=== PATIENT | female | born 1940 | race Caucasian/White ===

== ENCOUNTER → 2016-07-12 | Outpatient (CLI) | payer MEDICARE, OTHER | LOC: GMAL 12:20 | PROVIDERS: ATTEND Family Medicine | DX: D53.9 Nutritional anemia, unspecified (principal) ==

== ENCOUNTER → 2017-01-11 | Outpatient (CLI) | payer MEDICARE, OTHER ==
--- NOTE | 2017-01-11 15:08 | CT ---
EXAM DESCRIPTION: Chest w/Contrast CLINICAL HISTORY: SOLITARY PULMONARY NODULE COMPARISON: Chest x-ray September 10, 2014 TECHNIQUE: Postcontrast CT images of the chest are obtained. This exam was performed according to our departmental dose-optimization program, which includes automated exposure control, adjustment of the mA and/or kV according to patient size and/or use of iterative reconstruction technique . FINDINGS: The heart demonstrates severe coronary artery calcifications. Moderate calcified plaque of the thoracic aorta and great vessels is seen without aneurysmal dilatation or dissection. There are nonspecific less than 1 cm mediastinal lymph nodes without hilar or axillary lymphadenopathy. There is lipomatous hypertrophy of the interatrial septum noted. Visualized portion of the upper abdomen is unremarkable. Lungs are normally aerated. Mild centrilobular emphysematous changes are seen. There is a 12 x 14 mm noncalcified pulmonary nodule in the anterior inferior right upper lobe abutting the horizontal fissure partly contacting the lateral chest wall. No significant pulmonary nodules are identified. Osseous structures show multilevel spondylitic changes of the thoracic spine. Mild dextrocurvature of the thoracic spine is seen. IMPRESSION: There is a 12 x 14 mm noncalcified irregular pulmonary nodule in the anterior inferior right upper lobe that is concerning for primary bronchogenic carcinoma. Recommend further evaluation with biopsy and tissue sampling. Moderate centrilobular emphysematous changes to the lungs are seen. Severe coronary artery disease is seen. Electronically signed by: Piero Westfall MD 01/11/2017 3:06 PM CDT
== END | disposition home or self-care (01) ==
LOC: CT 08:32
PROVIDERS: ATTEND Family Medicine
DX: R91.1 Solitary pulmonary nodule (principal)

== ENCOUNTER 2017-02-28 09:50 | Inpatient (IN) | payer MEDICARE, OTHER ==
[2017-02-28] MEDS ORDERED: IPRATROPIUM/ALBUTEROL 3 ML VIAL INH ONE (10:18)
[2017-02-28] MEDS ORDERED: SODIUM CHLORIDE 0.9% (FLUSH) 10 ML SYG IV PRN ×2 (10:18→13:02)
[2017-02-28] MEDS ORDERED: ALBUTEROL SULFATE 2.5 MG/3 ML VIAL NEB ONE ×3 (10:23→10:37)
--- NOTE | 2017-02-28 10:45 | RAD ---
EXAM DESCRIPTION: Chest,1 View CLINICAL HISTORY: 77 years Female, SOB COMPARISON: September 10, 2014 and January 11, 2017 TECHNIQUE: AP portable chest. FINDINGS: Studies compared with prior chest x-ray from [address] of the chest from December. There is a faint nodule in the right lateral lung base correlating with the worrisome nodule seen on the recent CT scan. The study otherwise unremarkable. IMPRESSION: Faint nodule right lateral lung base just above the minor fissure Electronically signed by: Obie Eaton MD 02/28/2017 10:44 AM CDT
--- NOTE | 2017-02-28 11:17 | ED.PDOC ---
History of Present Illness - General Chief Complaint: Respiratory Problem Stated Complaint: sob Time Seen by Provider: 02/28/17 10:18 Source: patient Exam Limitations: no limitations - History of Present Illness Initial Comments: PT PRESENTS TO THE ED DUE TO FAILURE TO IMPROVE IN REGARDS TO SOB AND COUGH. PT WAS DIAGNOSED WITH BRONCHITIS AND COPD EXACERBATION BY HE PCP ON SUNDAY AND STARTED ON ABX AND STEROIDS. PT WAS TOLD TO COME TO THE ED IF SYMPTOM DID NOT IMPROVE BY THIS AM. PT DENIES, FEVER OR CHEST PAIN. Timing/Duration: days - 3 Severity: moderate Activities at Onset: none Possible Cause: chronic episodes Improving Factors: immobilization, rest Worsening Factors: movement Associated Symptoms: cough, wheezing Allergies/Adverse Reactions: Allergies Hydrocodone [From Tussionex] Adverse Reaction (Mild, Verified 02/28/17 10:11) couldnt stand up straight when she took it. Phenyltoloxamine [From Tussionex] Adverse Reaction (Mild, Verified 02/28/17 10: 11) couldnt stand up straight when she took it. Home Medications: Ambulatory Orders Albuterol Inhaler [Ventolin Hfa Inhaler] 2 inh INH QID PRN 09/03/14 Aspirin 325 mg PO QD 09/03/14 Cetirizine HCl [Zyrtec] 10 mg PO DAILY 09/03/14 Fluticasone/Salmeterol 250/50 [Advair 250/50 Diskus] 1 puff INH BID 09/03/14 Magnesium 500 mg PO DAILY 09/03/14 Tiotropium [place] Monohydrate [Spiriva Handihaler] 18 mcg IN DAILY 09/03/14 Verapamil HCl [Verapamil HCl ER] 180 mg PO BEDTIME 09/03/14 Arformoterol Tartrate Nebs [Brovana Nebs] 15 mcg NEB BID 02/28/17 Budesonide (Inhalation) [Budesonide] 0.5 mg IN PRN 02/28/17 Furosemide [Lasix] 40 mg PO DAILY 02/28/17 [place]-3 Fatty Acids [Fish Oil] 1,000 mg PO BID 02/28/17 Potassium Chloride [Micro-K] 10 meq PO TID 02/28/17 Rosuvastatin Calcium [Crestor] 10 mg PO DAILY 02/28/17 Spironolactone 50 mg PO DAILY 02/28/17 Tiotropium [place] Monohydrate [Spiriva Respimat] 1.25 mcg IN DAILY 02/28/17 Review of Systems - Review of Systems Constitutional: Denies: chills, fever EENTM: Denies: blurred vision, nose congestion Respiratory: States: see HPI, cough, short of breath, wheezing Cardiology: Denies: chest pain Gastrointestinal/Abdominal: Denies: nausea, vomiting Musculoskeletal: Denies: back pain, joint pain Skin: Denies: dryness, lesions Neurological: Denies: numbness, paresthesia Past Medical History (General) - Patient Medical History Hx Seizures: No Hx Stroke: No Hx Asthma: No Hx of COPD: Yes Hx Cardiac Disorders: Yes - CAD Hx Congestive Heart Failure: Yes Hx Pacemaker: No Hx Hypertension: Yes Hx Diabetes: No Hx MRSA: No Surgical History: no surgical history - Vaccination History Hx Influenza Vaccination: Yes Hx Pneumococcal Vaccination: Yes - Social History Hx Tobacco Use: Yes Hx Alcohol Use: No Hx Substance Use: No Hx Physical Abuse: No Hx Emotional Abuse: No - Activities of Daily Living Hospice Agency (if applicable):: None - Female History Patient is a Female of Child Bearing Age (10 -59 yrs old): No Patient : No Family Medical History - Family History Mother Family History: Unknown Living Status: Hx Family Asthma: No Hx Family Congestive Heart Failure: No Hx Family Hypertension: Yes Hx Family Stroke: Yes Hx Cardiac Disease: Yes Hx Family Diabetes: No Hx Family Cancer: No Physical Exam - Physical Exam General Appearance: Alert, No apparent distress, Obese, Well Developed, Well Groomed, Well Hydrated Eyes, Ears, Nose, Throat Exam: normal ENT inspection Neck: normal inspection Respiratory: no respiratory distress, no accessory muscle use, wheezing Cardiovascular/Chest: regular rate, rhythm, no murmur Gastrointestinal/Abdominal: non tender, soft Extremity: no pedal edema Neurologic: alert, normal mood/affect, oriented x 3 Skin Exam: normal color, warm/dry Progress - Progress Progress: 02/28/17 11:59 PT REPORTS ONLY MINIMAL IMPROVEMENT IN DYSPNEA AFTER DUONEB IN THE ED. FAINT EXPIRATORY WHEEZE REMAINING. ADDITIONAL DUONEB ORDERED. - Results/Orders Results/Orders: 02/28/17 10:18 Sodium Chloride 0.9% (Flush) [Saline Flush Syringe] 10 ml IV PRN PRN 02/28/17 10:21 IV Care:Saline Lock per Protoc QSHIFT Telemetry .ONCE 02/28/17 10:30 EKG STAT 03/01/17 09:00 Pulse Ox Daily Laboratory Results - last 24 hr 02/28/17 02/28/17 10:30 10:30 WBC 8.2 RBC 4.43 Hgb 13.5 Hct 40.1 MCV 90.6 MCH 30.5 MCHC 33.7 RDW 13.5 Plt Count 199 MPV 8.1 Absolute Neuts (auto) 7.10 H Absolute Lymphs (auto) 0.70 L Absolute Monos (auto) 0.40 Absolute Eos (auto) 0.00 Absolute Basos (auto) 0.00 Neutrophils % 86.1 H Lymphocytes % 8.8 L Monocytes % 4.5 Eosinophils % 0.3 L Basophils % 0.3 Sodium 137 Potassium 3.8 Chloride 98 L Carbon Dioxide 29 Anion Gap 13.8 BUN 25 H Creatinine 1.10 BUN/Creatinine Ratio 22.7 H Random Glucose 113 H Serum Osmolality 279.0 Calcium 9.9 Total Bilirubin 0.5 AST 27 ALT 29 Alkaline Phosphatase 46 B-Natriuretic Peptide 171.0 H Serum Total Protein 7.2 Albumin 4.2 Globulin 3.0 Albumin/Globulin Ratio 1.4 - EKG/XRAY/CT EKG: Sinus - @67BPM, NL INTERVALS, NL AXIS, no ST T wave changes, Unchanged from - 09/10/14 XRAY: chest Xray Comments: SMALL PULMONARY NODULE, NO ACUTE FINDINGS Departure - Departure Clinical Impression: COPD with exacerbation, Acute bronchitis, Failure of outpatient treatment Time of Disposition: 12:10 Disposition: Admit Patient Condition: Fair Departure Forms: ED Discharge - Pt. Copy, Patient Portal Self Enrollment Referrals: Jai Ricardo III, MD [Primary Care Provider] - 1-2 Weeks Home Medications: Ambulatory Orders Albuterol Inhaler [Ventolin Hfa Inhaler] 2 inh INH QID PRN 09/03/14 Aspirin 325 mg PO QD 09/03/14 Cetirizine HCl [Zyrtec] 10 mg PO DAILY 09/03/14 Fluticasone/Salmeterol 250/50 [Advair 250/50 Diskus] 1 puff INH BID 09/03/14 Magnesium 500 mg PO DAILY 09/03/14 Tiotropium [place] Monohydrate [Spiriva Handihaler] 18 mcg IN DAILY 09/03/14 Verapamil HCl [Verapamil HCl ER] 180 mg PO BEDTIME 09/03/14 Arformoterol Tartrate Nebs [Brovana Nebs] 15 mcg NEB BID 02/28/17 Budesonide (Inhalation) [Budesonide] 0.5 mg IN PRN 02/28/17 Furosemide [Lasix] 40 mg PO DAILY 02/28/17 [place]-3 Fatty Acids [Fish Oil] 1,000 mg PO BID 02/28/17 Potassium Chloride [Micro-K] 10 meq PO TID 02/28/17 Rosuvastatin Calcium [Crestor] 10 mg PO DAILY 02/28/17 Spironolactone 50 mg PO DAILY 02/28/17 Tiotropium [place] Monohydrate [Spiriva Respimat] 1.25 mcg IN DAILY 02/28/17 Decision To Admit - Decistion To Admit Decision to Admit Reason: Admit from ER Decision to Admit Date: 02/28/17 - CASE DISCUSSED WITH AKIL BROUSSARD WHO AGREES TO ADMIT PT. Decision to Admit Time: 11:45
--- NOTE | 2017-02-28 12:13 | HP ---
SUPERVISING PHYSICIAN: Ebenezer Giles MD CHIEF COMPLAINT: Shortness of breath. HISTORY OF PRESENT ILLNESS: Ms. Xavier was a 77-year-old, female who was recently seen in the clinic at Dr. Ricardo' office on 02/26/17 with complaints of some chest congestion, increasing wheezing and productive, green sputum. She does have a history of chronic bronchitis and chronic obstructive pulmonary disease. She was started on antibiotics to include doxycycline as well as prednisone, tapering dose, initially. Initially in the clinic, she was encouraged to go into the hospital for further treatment given her symptoms, but the patient refused and wanted to be treated at home. Her symptoms continued to worsen and she presented today secondary to failure to improve in regard to her shortness of breath and cough. She presented to the Emergency Department and denied any fever or chest pains. Initial laboratory studies showed she did have a normal white count of 8.2 with a left shift with a hemoglobin 13.5, hematocrit 40.1, platelet count 199,000. Chemistries showed were unremarkable except for a slightly elevated BNP of 171. Electrolytes were within normal limits. Magnesium 2.1. Radiographic studies completed included a chest x-ray, single view, that showed a faint nodule within the right lateral lung base just above the minor fissure and has been previously seen on CT scans and followed by Dr. Ricardo. She was shown to be afebrile, but saturation was 89 % to 90% on nasal cannula at rest at 3 liters and is chronically dependent on O2 24/7. Given her increasing sputum production and decreasing O2 saturation despite oxygen supplementation, Dr. Larson requested the patient be admitted to the hospital for initiation of parenteral antibiotics having failed to respond adequately to outpatient treatment plan for acute bronchitis, how with concerns for developing early pneumonia involving the right side. The patient was admitted to the Medical/Surgical Floor in stable condition. PAST MEDICAL HISTORY: 1. Hyperlipidemia. 2. Hypertension. 3. Chronic obstructive pulmonary disease with chronic bronchitis. 4. Tobacco abuse, she did quit smoking in August of 2014. 5. Umbilical hernia diagnosed in 2005. 6. Osteopenia involving the left hip. 7. Carpal tunnel syndrome bilaterally. 8. Secondary polycythemia from chronic obstructive pulmonary disease having received phlebotomy in the past in 2013. 9. Severe allergies. PAST SURGICAL HISTORY: 1. Tubal ligation in 1974. 2. Removal of inclusion cyst from the labia by Dr. Sumner in 2005. 3. Echocardiogram in October of 2014 showing ejection fraction of 65% with a mild diastolic dysfunction. HOME MEDICATIONS: 1. Zyrtec 10 mg twice daily. 2. Crestor 10 mg at bedtime. 3. Spironolactone 50 mg at bedtime. 4. Magnesium 500 mg at bedtime. 5. Lasix 80 mg daily. 6. Micro-K 30 mEq daily. 7. Budesonide 0.5 mg nebulizer b.i.d. 8. Spiriva Respimat 1.25 mcg daily. 9. Brovana nebulizer 15 mcg nebulized b.i.d. 10. Fish oil fatty acid 1000 mg twice daily. 11. Ventolin inhaler 1 inhaled q.i.d. as needed. 12. Advair 250/50 Diskus 1 puff inhaled b.i.d. 13. Verapamil 180 mg at bedtime. 14. Aspirin 325 mg daily. ALLERGIES: HYDROCODONE, PHENYLTOLOXAMINE. FAMILY HISTORY: Father at age 72 secondary to emphysema and advanced age. Mother at 76 secondary to heart attack. SOCIAL HISTORY: The patient is . She lives in [place]. She was a smoker , smoking approximately 1 to 1-1/2 packs a day and quit in August of 2014. She notes she has never drank alcohol and has never done illicit drugs. REVIEW OF SYSTEMS: CONSTITUTIONAL: Denies any fevers, chills, or unintentional weight change. HEENT: Denies blurry vision, nasal congestion, sore throat. RESPIRATORY: As noted in history of present illness, positive for cough, shortness of breath, wheezing and increasing purulent productive sputum. CARDIOVASCULAR: Denies chest pain or palpitations. Denies syncopal or presyncopal episodes. GASTROINTESTINAL: Denies nausea or vomiting. Denies diarrhea. She does have some issues with constipation. MUSCULOSKELETAL: Denies back pain or joint pains. NEUROLOGIC: Denies numbness, paresthesias, headaches, syncopal episodes or other neurological events. PHYSICAL EXAMINATION: VITAL SIGNS: Temperature 98.1. Pulse 68. Blood pressure 136/99. Heart rate 24. O2 saturation 89% on nasal cannula at rest at 3 liters, improving to 93% on nasal cannula on 3 liters after breathing treatments. Admission weight 89.8 kg. GENERAL: The patient was alert and oriented and in no acute distress. She was obese, well-developed, well-groomed, appeared to be well hydrated. HEENT: Tympanic membranes clear bilaterally. Oropharynx is pink, moist without any lesions. NECK: Supple, nontender with full range of motion. No jugular venous distention noted. CHEST: Notable wheezing bilaterally, but rhonchi or rales. Breath sounds were equal. CARDIOVASCULAR: Regular rate and rhythm without any appreciable murmurs, gallops, or rubs. ABDOMEN: Soft, nontender. Positive bowel sounds. EXTREMITIES: There is no cyanosis, clubbing or edema. NEUROLOGIC: The patient is alert and oriented times three. Facial features are symmetrical. Extraocular movements are within normal limits. There is no nystagmus noted. She was without any obvious neurologic deficit. EKG: Sinus rhythm at 67 beats per minute. No ST or T wave changes were noted compared to 09/10/14. LABORATORY: Normal white count of 8.2, hemoglobin 13.5, hematocrit 40.1, platelet count 199,000, differential showed a left shift. Chemistries showed normal electrolytes with potassium 3.8, BUN 25, creatinine 1.1, glucose 113, magnesium 2.1, calcium 9.9. Liver functions within normal limits. BNP normal at 171. RADIOLOGY: Chest x-ray per radiologic interpretation showed a faint nodule in the right lateral lung base just above the minor fissure which is being followed by Dr. Ricardo with having been previously seen on CT scan. ASSESSMENT: 1. Acute exacerbation of chronic obstructive pulmonary disease with acute bronchitis in a chronic smoker having failed to respond to outpatient treatment plan with concerns for early developing pneumonia with increasing sputum production with sputum cultures pending. 2. Chronic tobacco abuse having quit in August of 2014. 3. Hypertension. 4. Secondary polycythemia from chronic obstructive pulmonary disease requiring phlebotomy, last being done in 2013. 5. Severe seasonal allergies. 6. Chronic oxygen dependency. PLAN: The patient will be admitted to the hospital for initiation of further treatment to include parenteral antibiotics with Rocephin and azithromycin. She will also be started on aggressive pulmonary hygiene with DuoNeb treatments q.i.d. along with Solu-Medrol with loading dose of 80 mg which will be followed with 60 mg q.6h. for at least 3 doses. She will be on O2 to maintain saturation between 92% and 94%. We will start on DVT prophylaxis per protocol. Once her medications have been updated and verified in the medical records, we will resume those as appropriate. Anticipate length of stay to be at least two to three days as the patient is showing some desaturation. She would certainly benefit from continued IV antibiotics given the fact she had failed to respond to doxycycline in the outpatient setting and has multiple comorbidities. Until discharge, we will continue to monitor the patient closely and treat appropriately. #[id number] [facility]
[2017-02-28] MEDS ORDERED: ACETAMINOPHEN 325 MG TAB PO PRN (13:02)
[2017-02-28] MEDS ORDERED: ALBUTEROL SULFATE 2.5 MG/3 ML VIAL NEB PRN (13:02)
[2017-02-28] MEDS ORDERED: MORPHINE SULFATE INJ 10 MG/ML VIAL IV PRN (13:02)
[2017-02-28] MEDS ORDERED: ONDANSETRON INJ 4 MG/2 ML VIAL IV PRN (13:02)
[2017-02-28] MEDS ORDERED: methylPREDNISolone SODIUM SUC 125 MG/2 ML VIAL IV ONE (13:06)
[2017-02-28] MEDS ORDERED: BISACODYL TAB 5 MG TAB PO ONE ×2 (13:10→14:50)
[2017-02-28] MEDS ORDERED: MAGNESIUM HYDROXIDE 30 ML UD PO PRN (13:10)
[2017-02-28] MEDS ORDERED: KCL 20 MEQ/NS 1,000 ML IVS PRN (13:10)
[2017-02-28] MEDS ORDERED: MAGNESIUM HYDROXIDE 30 ML UD PO ONE (13:10)
--- NOTE | 2017-02-28 13:13 | PCM.CORE ---
Physician DVT/VTE - Nurse DVT Assessment & Total Each Risk Factor Represents 3 Points: Age over 75 years, Medical PT with Hx of HI, CHF, Severe infection/sepsis Each Risk Factor is 1 Point: Obesity (BMI >25), Serious Lung disease (pnemonia < 1month, COPD, emphysema,etc) DVT Assessment Score: 8 - 5 or more Very High Risk Treatments: Early Ambulation *, Sequential Compression Device Pharmacological: Enoxaparin 40mg SQ Daily
[2017-02-28] MEDS ORDERED: PANTOPRAZOLE SODIUM IV 40 MG VIAL IV SCH (13:30)
[2017-02-28] MEDS ORDERED: IV SET AND CAP CHANGE INJ INJ SCH (13:30)
[2017-02-28] MEDS ORDERED: SODIUM CHL 0.9% 50ML MIN-BAG+ 50 ML IVPB ONE (14:50)
[2017-02-28] MEDS ORDERED: methylPREDNISolone SODIUM SUC 40 MG/ML VIAL ONE (14:51)
[2017-02-28] MEDS ORDERED: cefTRIAXone SODIUM 1 GM VIAL ONE (14:51)
[2017-02-28] MEDS: cefTRIAXone SODIUM 1 GM in SODIUM CHL 0.9% 50ML MIN-BAG+ 50 ML IVPB SCH (15:24)
[2017-02-28] MEDS: ENOXAPARIN SODIUM 40 MG/0.4 ML SYG SUBCU SCH (15:25)
[2017-02-28] MEDS ORDERED: methylPREDNISolone SODIUM SUC 125 MG/2 ML VIAL ONE (15:54)
[2017-02-28] MEDS: IPRATROPIUM/ALBUTEROL 3 ML VIAL NEB SCH ×2 (16:41→19:35)
[2017-02-28] MEDS ORDERED: SODIUM CHLORIDE 0.9% 250ML 250 ML ONE (16:43)
[2017-02-28] MEDS ORDERED: AZITHROMYCIN IV 500 MG VIAL IVPB ONE (16:43)
[2017-02-28] MEDS: AZITHROMYCIN IV 500 MG in SODIUM CHLORIDE 0.9% 250ML 250 ML IVPB SCH (16:46)
[2017-02-28] MEDS ORDERED: ASPIRIN TABLET 325 MG TAB PO SCH (17:30)
[2017-02-28] MEDS: BUDESONIDE NEBS 0.5 MG/2 ML VIAL NEB SCH (19:35)
[2017-02-28] MEDS ORDERED: SPIRONOLACTONE 25 MG TAB ONE (20:53)
[2017-02-28] MEDS ORDERED: OMEGA PO SCH (21:00)
[2017-02-28] MEDS ORDERED: SPIRONOLACTONE 50 MG PO SCH (21:00)
[2017-02-28] MEDS ORDERED: MAGNESIUM 500 MG PO SCH (21:00)
[2017-02-28] MEDS ORDERED: FATTY ACIDS PO SCH (21:00)
[2017-02-28] MEDS ORDERED: NON-FORMULARY MEDICATION 1 EA MIS (Rosuvastatin Calcium [Crestor] 10 MG) PO SCH (21:00)
[2017-02-28] MEDS: VERAPAMIL ER TAB 180 MG TAB PO SCH (21:16)
[2017-02-28] MEDS: CETIRIZINE HCL 10 MG TAB PO SCH (21:17)
[2017-02-28] MEDS: methylPREDNISolone SODIUM SUC 125 MG/2 ML VIAL IV SCH (21:17)
[2017-02-28] MEDS: SODIUM CHLORIDE 0.9% 1000ML 1,000 ML IVS PRN (21:35)
[2017-03-01] MEDS: methylPREDNISolone SODIUM SUC 125 MG/2 ML VIAL IV SCH ×2 (03:20→08:53)
--- NOTE | 2017-03-01 07:20 | RAD ---
EXAM DESCRIPTION: Chest,2 Views CLINICAL HISTORY: 77 years Female, Pneumonia COMPARISON: 02/28/2017 and 01/11/2017 IMPRESSION: The heart remains enlarged, without failure. Calcific plaque in the thoracic aorta. Again demonstrated is the worrisome 12 mm pulmonary nodule in the right lower lobe which remains suspicious for bronchogenic carcinoma. The lungs remain hyperexpanded. Interval development of platelike atelectasis or consolidation in both lung bases since the prior exam. Blunting of both costophrenic sulci suggesting small bilateral pleural effusions. The findings may be secondary to atelectasis versus pneumonia. No pneumothorax. No acute osseous abnormality. Electronically signed by: Francis Lozano MD 03/01/2017 7:19 AM CDT Workstation: [id number]
[2017-03-01] MEDS: IPRATROPIUM/ALBUTEROL 3 ML VIAL NEB SCH ×4 (07:29→19:45)
[2017-03-01] MEDS: BUDESONIDE NEBS 0.5 MG/2 ML VIAL NEB SCH ×2 (08:30→19:45)
[2017-03-01] MEDS ORDERED: FISH OIL 1,200 MG CAP ONE (08:39)
[2017-03-01] MEDS: POTASSIUM CHLORIDE 10 MEQ TAB PO SCH (08:53)
[2017-03-01] MEDS: CETIRIZINE HCL 10 MG TAB PO SCH ×2 (08:53→21:05)
[2017-03-01] MEDS: FUROSEMIDE 40 MG TAB PO SCH (08:53)
[2017-03-01] MEDS: FISH OIL 1,200 MG CAP PO SCH ×2 (08:54→21:04)
[2017-03-01] MEDS: ASPIRIN TABLET 325 MG TAB PO SCH (08:54)
[2017-03-01] MEDS ORDERED: OMEGA-3 FATTY ACIDS 1,000 MG CAP PO SCH (09:00)
[2017-03-01] MEDS ORDERED: TIOTROPIUM INHALER INH SCH (09:00)
[2017-03-01] MEDS ORDERED: FLUTICASONE/SALMETEROL 250/50 14 PUFF/17 GM INH INH SCH (09:00)
[2017-03-01] MEDS: PANTOPRAZOLE SODIUM TAB 40 MG PO SCH (11:31)
[2017-03-01] MEDS: SPIRIVA RESPIMAT INH SCH (12:57)
[2017-03-01] MEDS: ARFORMOTEROL TARTRATE 15 MCG/2 ML NEB NEB SCH ×2 (12:57→19:45)
--- NOTE | 2017-03-01 13:12 | PN ---
DATE: 03/01/17 SUBJECTIVE: The patient is sitting up and is even a little more hungry today than yesterday. She states her breathing seems to be more open and less distressed and less tight today compared to yesterday. She continues on her treatment program having failed outpatient therapy started in the clinic. It is of note that she has had a right lung nodule and has been evaluated by pulmonary medicine on February 01 and they have suggested a repeat CT scan of the lung in about 3 months or in May. They have opted not to do bronchoscopy or needle biopsy because of the smallness of the lesion. OBJECTIVE: VITAL SIGNS: Pulse 96. Afebrile. Respiratory rate 24. Pulse oximetry 92% on 3 liters nasal cannula. Some weight changes have been noted. GENERAL: The patient is able to communicate in full sentences. LUNGS: She is noticeably somewhat short of breath and does breathe out when she can with her pursed lips. Some wheezing is evident on auscultation, especially on exhalation and some rhonchi present in the lateral lung eubanks, more prominent on the right than the left. HEART: Regular. ABDOMEN: Soft, though slightly obese. EXTREMITIES: Trace of edema. The patient is eating much improved compared to yesterday. LABORATORY: White count 5,800, hemoglobin 12.2. Chemistries show potassium up to 4.3, BUN 28, creatinine 1.2. Glucose 157, calcium 9.1. No cultures obtained. Chest x-ray does show evidence of possible bibasilar infiltrative process possibly representing a pneumonia with chronic obstructive pulmonary disease evident. ASSESSMENT: 1. Chronic obstructive pulmonary disease with an acute exacerbation with associated dyspnea. This is being treated with bronchial hygiene, oxygen titrated as well as corticosteroid administration. 2. Acute bronchitis, contributing to some of her dyspnea. 3. Chronic tobacco abuse having quit approximately 2-1/2 years ago. 4. History of hypertension. 5. Polycythemia, probably secondary to chronic obstructive pulmonary disease. 6. History of seasonal allergies. 7. Chronic oxygen use at home. 8. History of right lung nodule suggesting a bronchogenic neoplastic process with further followup pulmonary medicine. 9. Chest x-ray suggests a bibasilar pneumonia with repeat followup in the morning. PLAN: Continue with ambulation studies to more fully evaluate the oxygen requirements. Repeat chest x-ray. Await urinalysis. Utilize oxygen to keep within range of 91% to 94%. Avoid over oxygenation. Continue with close followup with Dr. Ricardo and with pulmonary medicine. #[id number]/ [id number]
[2017-03-01] MEDS ORDERED: cefTRIAXone SODIUM 1 GM VIAL ONE (13:19)
[2017-03-01] MEDS ORDERED: SODIUM CHL 0.9% 50ML MIN-BAG+ 50 ML IVPB ONE (13:19)
[2017-03-01] MEDS: cefTRIAXone SODIUM 1 GM in SODIUM CHL 0.9% 50ML MIN-BAG+ 50 ML IVPB SCH (13:38)
[2017-03-01] MEDS: ENOXAPARIN SODIUM 40 MG/0.4 ML SYG SUBCU SCH (13:38)
[2017-03-01] MEDS: SODIUM CHLORIDE 0.9% 1000ML 1,000 ML IVS PRN (14:23)
[2017-03-01] MEDS ORDERED: SODIUM CHLORIDE 0.9% 250ML 250 ML ONE (16:23)
[2017-03-01] MEDS ORDERED: AZITHROMYCIN IV 500 MG VIAL IVPB ONE (16:23)
[2017-03-01] MEDS: AZITHROMYCIN IV 500 MG in SODIUM CHLORIDE 0.9% 250ML 250 ML IVPB SCH (16:32)
[2017-03-01] MEDS ORDERED: MAGNESIUM OXIDE 400 MG TAB ONE (19:51)
[2017-03-01] MEDS ORDERED: SPIRONOLACTONE 25 MG TAB ONE (19:51)
[2017-03-01] MEDS ORDERED: ATORVASTATIN 20 MG TAB PO ONE (19:51)
[2017-03-01] MEDS: MAGNESIUM OXIDE 400 MG TAB PO SCH (21:04)
[2017-03-01] MEDS: ATORVASTATIN 20 MG TAB PO SCH (21:04)
[2017-03-01] MEDS: VERAPAMIL ER TAB 180 MG TAB PO SCH (21:05)
[2017-03-01] MEDS: SPIRONOLACTONE 25 MG TAB PO SCH (21:05)
[2017-03-02] MEDS: PANTOPRAZOLE SODIUM TAB 40 MG PO SCH (05:38)
--- NOTE | 2017-03-02 06:33 | RAD ---
Procedure: XR CHEST 2 VIEWS Exam Date: 03/02/2017 Ordering Provider: VIJAY MELISSA MD Clinical Indication: bibasilar pneumonia? COPD Comparison: 03/01/2017 Findings: Cardiomediastinal silhouette is stable. Focal lung consolidation: No focal lung consolidation. Bibasilar subsegmental atelectasis. Changes of COPD. Stable 12 mm nodule in the right lower lobe. Pleural effusion: Small bilateral pleural effusions. Pneumothorax: None Acute bony or soft tissue abnormality: None Impression: 1. No focal lung consolidation. 2. Bibasilar subsegmental atelectasis with small bilateral pleural effusions. 3. No other significant interval change. Electronically signed by: Selwyn Patterson MD 03/02/2017 6:32 AM CDT
[2017-03-02] MEDS: POTASSIUM CHLORIDE 10 MEQ TAB PO SCH (07:49)
[2017-03-02] MEDS: IPRATROPIUM/ALBUTEROL 3 ML VIAL NEB SCH ×4 (08:02→20:18)
[2017-03-02] MEDS: SPIRIVA RESPIMAT INH SCH (08:03)
[2017-03-02] MEDS: ARFORMOTEROL TARTRATE 15 MCG/2 ML NEB NEB SCH ×2 (08:03→20:18)
[2017-03-02] MEDS: BUDESONIDE NEBS 0.5 MG/2 ML VIAL NEB SCH ×2 (08:03→20:18)
[2017-03-02] MEDS: FUROSEMIDE 40 MG TAB PO SCH (09:31)
[2017-03-02] MEDS: CETIRIZINE HCL 10 MG TAB PO SCH ×2 (09:31→20:20)
[2017-03-02] MEDS: ASPIRIN TABLET 325 MG TAB PO SCH (09:31)
[2017-03-02] MEDS: FISH OIL 1,200 MG CAP PO SCH ×2 (09:31→20:19)
[2017-03-02] MEDS: SODIUM CHLORIDE 0.9% 1000ML 1,000 ML IVS PRN (10:03)
--- NOTE | 2017-03-02 11:08 | PN ---
DATE: 03/02/17 SUBJECTIVE: The patient is sitting up and is able to talk in full sentences. She still gets quite dyspneic on any type of exertion, even walking towards the bathroom. Ambulation study does show desaturation on 3 liters down to 88. She normally is on 2-1/2 liters at home and admits saturations up to 97% to 98%, so at the present time, she is showing some degree of hypoxia compared to her usual , requiring more oxygen and at a lower saturation. She is not as active as could be which will be remedied as we increase her activity today with observation to continue. OBJECTIVE: VITAL SIGNS: Afebrile. Pulse 76. Pulse oximetry 93% on 3 liters. Blood pressure 104/65. GENERAL: The patient is awake, alert and communicative. LUNGS: Diminished breath sounds bilaterally, though seemingly a little clearer today than yesterday. HEART: Regular. ABDOMEN: Obese, yet soft and nontender. LABORATORY: Pending review in the morning on repeat. Chest x-ray today fails to show any significant infiltrative consolidation and shows some slight improvement in the bases compared to yesterday. Still with a right sided nodule in the lung. ASSESSMENT: 1. Chronic obstructive pulmonary disease with an acute exacerbation with associated dyspnea. This is being treated with bronchial hygiene, oxygen titrated as well as corticosteroid administration. 2. Acute bronchitis, contributing to some of her dyspnea. 3. Chronic tobacco abuse having quit approximately 2-1/2 years ago. 4. History of hypertension. 5. Polycythemia, probably secondary to chronic obstructive pulmonary disease. 6. History of seasonal allergies. 7. Chronic oxygen use at home. 8. History of right lung nodule suggesting a bronchogenic neoplastic process with further followup pulmonary medicine. 9. Chest x-ray suggests a bibasilar pneumonia with repeat followup in the morning. PLAN: We will increase activity and repeat ambulation study for desaturation evaluation. Continue with Solu-Medrol twice a day today, which was stopped last evening and for at least one more day of anti-inflammatory treatment and then be able to be placed on a tapering p.o. dose by tomorrow. Continue to observe closely and the patient will have close followup with Dr. Ricardo and with pulmonary medicine clinic upon discharge hopefully in the morning as stable. #[id number] [facility]
[2017-03-02] MEDS: methylPREDNISolone SODIUM SUC 40 MG/ML VIAL IV SCH ×2 (11:38→20:20)
[2017-03-02] MEDS: ENOXAPARIN SODIUM 40 MG/0.4 ML SYG SUBCU SCH (14:30)
[2017-03-02] MEDS ORDERED: SODIUM CHL 0.9% 50ML MIN-BAG+ 50 ML IVPB ONE (14:33)
[2017-03-02] MEDS ORDERED: cefTRIAXone SODIUM 1 GM VIAL ONE (14:34)
[2017-03-02] MEDS: cefTRIAXone SODIUM 1 GM in SODIUM CHL 0.9% 50ML MIN-BAG+ 50 ML IVPB SCH (14:35)
[2017-03-02] MEDS ORDERED: SODIUM CHLORIDE 0.9% 250ML 250 ML ONE (16:23)
[2017-03-02] MEDS ORDERED: AZITHROMYCIN IV 500 MG VIAL IVPB ONE (16:24)
[2017-03-02] MEDS: AZITHROMYCIN IV 500 MG in SODIUM CHLORIDE 0.9% 250ML 250 ML IVPB SCH (16:30)
[2017-03-02] MEDS: VERAPAMIL ER TAB 180 MG TAB PO SCH (20:19)
[2017-03-02] MEDS: SPIRONOLACTONE 25 MG TAB PO SCH (20:19)
[2017-03-02] MEDS: MAGNESIUM OXIDE 400 MG TAB PO SCH (20:19)
[2017-03-02] MEDS: ATORVASTATIN 20 MG TAB PO SCH (20:19)
[2017-03-03] MEDS: PANTOPRAZOLE SODIUM TAB 40 MG PO SCH (05:32)
[2017-03-03] MEDS: SODIUM CHLORIDE 0.9% 1000ML 1,000 ML IVS PRN (05:34)
[2017-03-03] MEDS ORDERED: SODIUM CHL 0.9% 50ML MIN-BAG+ 50 ML IVPB ONE (07:55)
[2017-03-03] MEDS ORDERED: cefTRIAXone SODIUM 1 GM VIAL ONE (07:56)
[2017-03-03] MEDS: BUDESONIDE NEBS 0.5 MG/2 ML VIAL NEB SCH (08:26)
[2017-03-03] MEDS: ARFORMOTEROL TARTRATE 15 MCG/2 ML NEB NEB SCH (08:26)
[2017-03-03] MEDS: SPIRIVA RESPIMAT INH SCH (08:26)
[2017-03-03] MEDS: IPRATROPIUM/ALBUTEROL 3 ML VIAL NEB SCH ×2 (08:26→12:42)
[2017-03-03] MEDS: POTASSIUM CHLORIDE 10 MEQ TAB PO SCH (08:30)
[2017-03-03] MEDS: FISH OIL 1,200 MG CAP PO SCH (08:39)
[2017-03-03] MEDS: ASPIRIN TABLET 325 MG TAB PO SCH (08:39)
[2017-03-03] MEDS: CETIRIZINE HCL 10 MG TAB PO SCH (08:39)
[2017-03-03] MEDS: FUROSEMIDE 40 MG TAB PO SCH (08:41)
[2017-03-03 11:42] VITALS: BP 119/67; TEMP 97.3
[2017-03-03 14:22] VITALS: O2SAT 96
--- NOTE | 2017-03-14 14:17 | DS ---
SUPERVISING PHYSICIAN: Ebenezer Giles MD DISCHARGE DIAGNOSIS: 1. Chronic obstructive pulmonary disease with an acute exacerbation secondary to bibasilar pneumonia, improved with treatment including bronchodilators, corticosteroids and antibiotics. 2. Acute bronchitis, contributing to #1. 3. Chronic tobacco abuse having quit approximately 2-1/2 years previously. 4. History of hypertension. 5. Polycythemia, probably secondary to chronic obstructive pulmonary disease. 6. History of seasonal allergies. 7. Chronic oxygen use at home. 8. History of right lung nodule suggesting a bronchogenic neoplastic process with further followup pulmonary medicine. 9. History of right lung nodule. HISTORY OF PRESENT ILLNESS: Ms. Xavier was a 77-year-old, female who presented to the hospital from the Emergency Department for concerns for developing right sided pneumonia. She had been previously seen in the clinic on the day of admission at Dr. Ricardo' office on 02/26/17 with complaints of some chest congestion, increasing wheezing and productive sputum. She does have a history of chronic bronchitis and chronic obstructive pulmonary disease. She had been started on antibiotics to include doxycycline as well as prednisone, tapering dose, initially. Initially in the clinic, she was encouraged to go into the hospital for further treatment given her symptoms, but the patient refused and wanted to be treated at home. Her symptoms continued to worsen and she presented on date of admission secondary to failure to improve in regard to her shortness of breath and cough. She denied any fever or chest pains on admission. Initial laboratory studies showed she did have a normal white count of 8.2 with a slightly elevated BNP of 171. Radiographic studies completed included a chest x-ray, single view, that showed a faint nodule within the right lateral lung base just above the minor fissure and has been previously seen on CT scans and followed by Dr. Ricardo. She was shown to be afebrile, but saturation was 89% to 90% on nasal cannula at rest at 3 liters and is chronically dependent on O2 24/7. Given her increasing sputum production and decreasing O2 saturation despite oxygen supplementation, Emergency Room physician, Dr. Larson, requested the patient be admitted to the hospital for initiation of parenteral antibiotics having failed to respond adequately to outpatient treatment plan for acute bronchitis and developing right sided pneumonia. LABORATORY: White count on admission was 8.2, discharge was 5.3. Hemoglobin and hematocrit were fairly stable and on discharge was 12.0 with hematocrit 35.6 with platelet count within normal limits at 162,000. Initially on admission, differential did show a left shift. This persisted with some improvement prior to discharge. Chemistries on admission showed normal electrolytes as well as discharge. Potassium 4.0. Renal function was within normal limits just with a slightly elevated BUN. And therefore discharge, it was 24. Creatinine was normal at 0.96. Calcium 8.7. Liver functions on admission were normal. Magnesium 2.1. BNP only slightly elevated at 171. Urinalysis was within normal limits with just a trace leukocyte esterase on dipstick. MICROBIOLOGY: Sputum culture showed normal zac at 48 hours. RADIOLOGY: Initially in the Emergency Department, chest x-ray per radiologic interpretation, single view portable, showed faint nodule in the right lateral lung base just above the minor fissure that had been seen in [address] in December. Repeat chest x-rays were completed and final x-ray on 03/02/17, day before discharge, showed no focal consolidations. There was a note of bibasilar subsegmental atelectasis with small bilateral pleural effusions, no other significant interval changes noted on CT chest per radiologic interpretation. EKG on admission showed normal sinus rhythm. HOSPITAL COURSE: Ms. Xavier was admitted from the Emergency Department as noted above with concerns for exacerbation of her chronic obstructive pulmonary disease with bronchitis and early developing right lower lobe pneumonia. She was initiated on bronchial hygiene with breathing treatments with DuoNeb, given Solu-Medrol and azithromycin and Rocephin. She showed good clinical improvement and response through hospitalization and was felt on date of discharge to be stable enough to be continued on outpatient setting. PLAN: Ms. Xavier was discharged on 03/03/17 with instructions to have close clinical followup with Dr. Ricardo after discharge on 03/06/17. She was to resume her home medications as instructed and to take new prescriptions as directed. She was to utilize O2 at home at all times and return to the hospital should she have any worsening or concerning symptoms. At discharge, new prescriptions included: 1. Zithromax 500 mg tablets, #2. 2. Medrol Dosepak 4 mg. 3. Prednisone 10 mg daily, #7, to start after she finished the Medrol Dosepak. DIET AT DISCHARGE: Regular diet as tolerated. ACTIVITY: As tolerated. CONDITION AT DISCHARGE: Stable and improved. #[id number] [facility]
== END 2017-03-03 12:59 | disposition home or self-care (01) | DRG 190 ==
LOC: ER 09:50 → MS 12:12
PROVIDERS: ADMIT Nurse Practitioner Family; ATTEND Nurse Practitioner Family
DX: J44.0 Chronic obstructive pulmonary disease with (acute) lower respiratory infection (principal); J18.9 Pneumonia, unspecified organism; J44.1 Chronic obstructive pulmonary disease with (acute) exacerbation; R09.02 Hypoxemia; J20.9 Acute bronchitis, unspecified; D75.1 Secondary polycythemia; I11.0 Hypertensive heart disease with heart failure; I50.9 Heart failure, unspecified; E78.5 Hyperlipidemia, unspecified; M85.88 Other specified disorders of bone density and structure, other site; I25.10 Atherosclerotic heart disease of native coronary artery without angina pectoris; E66.9 Obesity, unspecified; G56.03 Carpal tunnel syndrome, bilateral upper limbs; Z87.891 Personal history of nicotine dependence; Z79.51 Long term (current) use of inhaled steroids; Z79.82 Long term (current) use of aspirin; Z79.899 Other long term (current) drug therapy; Z88.5 Allergy status to narcotic agent; Z88.8 Allergy status to other drugs, medicaments and biological substances; Z99.81 Dependence on supplemental oxygen; Z68.34 Body mass index [BMI] 34.0-34.9, adult

== ENCOUNTER → 2017-05-08 | Outpatient (CLI) | payer MEDICARE, OTHER ==
--- NOTE | 2017-05-09 23:23 | CT ---
Procedure: CT CHEST WITHOUT IV CONTRAST Exam Date: 05/08/2017 Ordering Provider: Joe Mcintyre Clinical Indication: SOLITARY NODULE OF LUNG Comparison: 01/11/2017 TECHNIQUE: 5 mm images were taken through the chest without intravenous contrast material. Coronal and sagittal reformatted images were generated. This exam was performed according to our departmental dose optimization program which includes use of automated exposure control, adjustment of the mA and/or kV according to patient size and/or use of iterative reconstruction technique. FINDINGS: Lines/Tubes/Devices: None Lungs and large airways: No focal lung consolidation. Stable 14 mm nodule in the right upper lobe. There is evidence of prior granulomatous disease. Emphysematous changes. Right basilar scarring. No new nodules. Pleura: No pleural effusion. No pneumothorax. Mediastinum and saunrda: Stable prominent mediastinal lymph nodes. Evaluation of hilar lymphadenopathy is limited without IV contrast. Heart and great vessels: Heart is not enlarged. No pericardial effusion. No aortic aneurysm. Aortic calcification. Coronary artery calcifications. Chest wall, lower neck, axillae: Unremarkable Upper abdomen: Nonacute Bones: Nonacute IMPRESSION: 1. Stable 14 mm nodule in the right upper lobe. No new nodules. 2017 Fleischner Society Recommendations for Single Solid Lung Nodule Follow-Up based on size (average of long- and short-axis diameters) >8 mm Low-Risk Patient: Consider CT, PET/CT or tissue sampling at 3 months >8 mm High-Risk Patient: Same as for low-risk patient Electronically signed by: Selwyn Patterson MD 05/09/2017 11:21 PM INFORMATION TECHNOLOGY DATA ANALYST
== END ==
LOC: CT 13:48
PROVIDERS: ATTEND Internal Medicine
DX: J44.9 Chronic obstructive pulmonary disease, unspecified (principal); R91.1 Solitary pulmonary nodule

== ENCOUNTER → 2017-06-04 | Outpatient (CLI) | payer MEDICARE | END | disposition home or self-care (01) | LOC: GMAL 16:57 | PROVIDERS: ATTEND Family Medicine | DX: I50.9 Heart failure, unspecified (principal) ==

== ENCOUNTER → 2017-11-15 | Outpatient (CLI) | payer MEDICARE ==
--- NOTE | 2017-11-15 16:27 | CT ---
EXAM DESCRIPTION: Chest w/o Contrast CLINICAL HISTORY: 77 years Female, R91.1 COMPARISON: CT chest dated 05/08/2017 and 01/11/2017. TECHNIQUE: Contiguous thin section axial images through the chest were obtained without the administration of intravenous contrast. Sagittal and coronal reconstructions were reviewed. FINDINGS: The visualized thyroid gland and supraclavicular region appear normal. No evidence of abnormally enlarged mediastinal, hilar or axillary lymphadenopathy. Trachea is midline and the central tracheobronchial tree is patent. Emphysematous changes are again identified in both lungs. No acute consolidation. Stable 1.4 x 1.1 cm soft tissue nodule in the right upper lobe, best seen on image #63. No new nodules are identified. No evidence of pleural effusions. The heart is normal in size with no pericardial effusion. The visualized aorta is nonaneurysmal with moderate atherosclerosis. The superior vena cava is normal in size and caliber. Moderate to severe coronary artery atherosclerosis. The esophagus appears normal throughout its visualized length. Limited evaluation of the upper abdomen demonstrates no gross abnormality. Degenerative changes are identified throughout the thoracic spine. IMPRESSION: Stable 1.4 x 1.1 cm right upper lobe pulmonary nodule compared to prior chest CT dated 01/11/2017. Follow-up chest CT can be performed in 6 months to document two-year stability. Electronically signed by: Pauline Masters MD 11/15/2017 4:26 PM CDT
== END ==
LOC: CT 10:00
PROVIDERS: ATTEND Internal Medicine
DX: R91.1 Solitary pulmonary nodule (principal)

== ENCOUNTER → 2018-03-06 | Outpatient (CLI) | payer MEDICARE | LOC: NC 10:13 | PROVIDERS: ATTEND Family Medicine | DX: I10 Essential (primary) hypertension (principal); J91.8 Pleural effusion in other conditions classified elsewhere; E78.5 Hyperlipidemia, unspecified; D75.1 Secondary polycythemia; M81.0 Age-related osteoporosis without current pathological fracture; D51.0 Vitamin B12 deficiency anemia due to intrinsic factor deficiency ==

== ENCOUNTER → 2018-03-08 | Outpatient (CLI) | payer MEDICARE | LOC: GMAL 12:36 | PROVIDERS: ATTEND Family Medicine | DX: I50.89 Other heart failure (principal); R53.83 Other fatigue ==

== ENCOUNTER → 2018-04-18 | Outpatient (CLI) | payer MEDICARE ==
--- NOTE | 2018-04-18 15:12 | CT ---
EXAM DESCRIPTION: Chest w/o Contrast : Computed Tomography. CLINICAL HISTORY: R91.1. Solitary pulmonary nodule. COMPARISON: CT scans of the chest 01/11/2017, 05/08/2017, and 11/15/2017. Bilateral digital breast tomosynthesis on this visit. TECHNIQUE: Spiral-axial scans at 5 x 5 mm intervals through the lungs and thorax without IV contrast. 2.5 mm lung algorithm axial reconstructions. Coronal and sagittal 2.0 Mm reconstructions. Total Exam DLP: 840.63 mGy-cm. This exam was performed according to our departmental dose-optimization program which includes automated exposure control, adjustment of the mA and/or kV according to patient size and/or use of iterative reconstruction technique; to reduce radiation dose to as low as reasonably achievable (ALARA). Technologist note: Patient very short of breath. FINDINGS: Solid nodule with partially lobulated and partially spiculated borders is again visualized abutting the lateral inferior right upper lobe, on the lateral right horizontal fissure, and the lateral pleura. Lung algorithm axial series 4, image 66 and sagittal series, images 61-63. Dimensions in the axial plane are 1.8 x 1.2 cm. On the prior study in December 2017, Dimensions are 1.1 x 1.0 cm. No obvious pleural thickening or effusion. No rib destruction. Small scattered emphysematous blebs in the bilateral upper lung eubanks and a centrilobular pattern. Not as prevalent in the lower lung eubanks bilaterally. Scarring in the base of the right middle lobe and bilateral lower lobe bases. Linear scar extends from the hemidiaphragm to the lateral pleura in the right lower lobe. 2 mm solid nodule subpleural lateral right lower lobe on lung axial image 98 is unchanged. Pleural scarring in the posterior mid sagittal right lower lobe recess is stable. Stable crescent shaped scar in the left lower lobe is subpleural on image 81. Stable subpleural lateral 2 mm solid nodule on lung axial images 21 and 22. Pleura: No pleural effusion or pneumothorax. Small focal regions of nodular thickening. Hilum and mediastinum: Limited evaluation due to lack of IV contrast. No large soft tissue masses or lymph nodes. Heart and great vessels: Brachiocephalic atherosclerotic calcification and calcification also in the aortic arch and descending thoracic aorta. Coronary artery calcifications. Heart is not enlarged. Chest wall, neck base and other soft tissues: No large soft tissue masses or enlarged lymph nodes. Thyroid symmetric. Sub- diaphragmatic abdomen: No peritoneal fluid or mass. Spleen and adrenal glands normal size. Small splenule. Small liver. Diffuse atherosclerosis of the included aorta. Bones: Multiple levels of thoracic spondylosis. Disc space narrowing. Minimal glenohumeral arthrosis. No blastic or lytic lesions. IMPRESSION: 1. Partially circumscribed lobulated and spiculated margin mass abutting the lateral pleura at the base of the right upper lobe and also the lateral horizontal fissure. Increased 50% in size since the prior study 3 months ago and this suggests malignant involvement. No suspicious nodules elsewhere or large soft tissue masses in the chest wall mediastinum or hilum. Evaluation of the soft tissues is limited due to lack of IV contrast. This lesion would be amenable to percutaneous image guided biopsy. 2. Emphysematous changes more prevalent in the upper lobes than the lower lobes. No bilateral adrenal gland mass. CRITICAL COMMUNICATION: The critical value was discussed directly by phone with Dr. Jai Ricardo at approximately 1100 hours, on April 18, 2018. Electronically signed by: Sam Moulton MD 04/18/2018 3:11 PM CDT
--- NOTE | 2018-04-18 16:26 | MAM ---
EXAM DESCRIPTION: 3D Screening BILATERAL : Digital Mammography. CLINICAL HISTORY: 78 years Female SCREEN . No complaints. No personal history or family history of breast cancer. Childbirth. Postmenopausal 17 years. No HRT. Lifetime risk of developing breast cancer (Tyrer-Cuzick model)(%): 2.5. COMPARISON: 2-D digital screening mammography bilaterally 11/17/2013.. TECHNIQUE: Bilateral CC and MLO projection full-field images, Digital tomosynthesis mammographic technique. Bilateral digital 2-D full-field MLO images. CAD not utilized. FINDINGS: The breast parenchymal density pattern is: Scattered areas of fibroglandular density. No skin thickening or nipple retraction. Multiple bilateral secretory calcifications. Symmetric in both breasts. Other benign microcalcifications. Bilateral vascular calcifications. No new focal, stellate mass or density, focal asymmetry , and no suspicious microcalcifications bilaterally. Stable mammograms compared to prior study. Taking into account, differences in mammographic technique. IMPRESSION: Benign exam. BIRAD CATEGORY: 2 BENIGN FINDINGS. RECOMMENDATIONS: FOLLOW UP: Routine digital bilateral screening, one year interval from April 2018. Written communication explaining the IMPRESSION and follow-up, will be mailed to the patient and referring health care provider. According to the [employer], yearly mammograms are recommended starting at age 40 and continuing as long as a woman is in good health. Any breast change noted on a breast self-exam should be reported promptly to the patient's healthcare provider. Breast MRI is recommended for women with an approximately 20-25% or greater lifetime risk of breast cancer, including women with a strong family history of breast or ovarian cancer and women who have been treated for Hodgkin's disease. A negative mammographic report should not delay tissue diagnosis in patients with significant clinical history or physical findings. Extremely dense breast tissue limits the sensitivity of digital mammography. Electronically signed by: Sam Moulton MD 04/18/2018 4:24 PM CDT
== END ==
LOC: CT 09:00
PROVIDERS: ATTEND Family Medicine
DX: Z12.31 Encounter for screening mammogram for malignant neoplasm of breast (principal); R91.1 Solitary pulmonary nodule; R91.8 Other nonspecific abnormal finding of lung field

== ENCOUNTER → 2018-05-02 | Outpatient (CLI) | payer MEDICARE ==
--- NOTE | 2018-05-02 15:28 | US ---
EXAM DESCRIPTION: Venous,Lower Extremity LT: ULTRASOUND. CLINICAL HISTORY: [id number] COMPARISON: None Available. TECHNIQUE: Mattson-scale and doppler sonographic evaluation of the deep venous system of the left lower extremity. FINDINGS: Doppler evaluation shows normal color flow and normal phasicity and augmentation of the left common femoral vein, femoral vein, popliteal vein, greater/lesser saphenous vein, peroneal, and posterior tibial vein. The left lower extremity deep veins showed normal occlusion with transducer pressure. Mattson-scale survey showed no echogenic thrombus within these veins. IMPRESSION: 1. Duplex ultrasound evaluation of the left lower extremity deep venous system showing no evidence of thrombosis. Electronically signed by: Sam Moulton MD 05/02/2018 3:27 PM CDT
== END ==
LOC: US 10:31
PROVIDERS: ATTEND Family Medicine
DX: I82.A22 Chronic embolism and thrombosis of left axillary vein (principal)

== ENCOUNTER → 2018-09-06 | Outpatient (CLI) | payer MEDICARE | LOC: NC 11:46 | PROVIDERS: ATTEND Family Medicine | DX: J44.1 Chronic obstructive pulmonary disease with (acute) exacerbation (principal); I11.0 Hypertensive heart disease with heart failure; I50.9 Heart failure, unspecified ==

== ENCOUNTER → 2020-01-16 | Outpatient (CLI) | payer MEDICARE ==
--- NOTE | 2020-01-16 15:55 | US ---
EXAM DESCRIPTION: Venous,Lower Extremity LT (accession [id number]), Venous,Lower Extremity RT (accession [id number]): Ultrasound. CLINICAL HISTORY: R/O DVT COMPARISON: Duplex ultrasound evaluation of the left lower extremity venous system May 2018. TECHNIQUE: Two -dimensional and doppler sonographic evaluation of the deep venous system of the bilateral lower extremities. FINDINGS: Doppler evaluation shows normal color flow and normal phasicity and augmentation of the bilateral common femoral veins, junctions with the bilateral proximal saphenous veins, femoral veins, popliteal veins, greater saphenous veins, peroneal posterior tibial veins. These veins showed normal occlusion with transducer pressure. Two-dimensional survey showed no echogenic clot within these veins. Interstitial edema in the subcutaneous adipose tissue of the left calf. IMPRESSION: Duplex ultrasound evaluation of the bilateral lower extremity deep venous systems showing no evidence of thrombosis. Interstitial edema in the subcutaneous adipose tissue of the left calf. Electronically signed by: Sam Moulton MD 01/16/2020 3:53 PM CDT
--- NOTE | 2020-01-16 15:55 | US ---
EXAM DESCRIPTION: Venous,Lower Extremity LT (accession [id number]), Venous,Lower Extremity RT (accession [id number]): Ultrasound. CLINICAL HISTORY: R/O DVT COMPARISON: Duplex ultrasound evaluation of the left lower extremity venous system May 2018. TECHNIQUE: Two -dimensional and doppler sonographic evaluation of the deep venous system of the bilateral lower extremities. FINDINGS: Doppler evaluation shows normal color flow and normal phasicity and augmentation of the bilateral common femoral veins, junctions with the bilateral proximal saphenous veins, femoral veins, popliteal veins, greater saphenous veins, peroneal posterior tibial veins. These veins showed normal occlusion with transducer pressure. Two-dimensional survey showed no echogenic clot within these veins. Interstitial edema in the subcutaneous adipose tissue of the left calf. IMPRESSION: Duplex ultrasound evaluation of the bilateral lower extremity deep venous systems showing no evidence of thrombosis. Interstitial edema in the subcutaneous adipose tissue of the left calf. Electronically signed by: Sam Moulton MD 01/16/2020 3:53 PM CDT
== END ==
LOC: US 11:51
PROVIDERS: ATTEND Emergency Medicine
DX: R60.9 Edema, unspecified (principal)

== ENCOUNTER → 2020-04-07 | Outpatient (CLI) | payer MEDICARE | LOC: NC 16:57 | PROVIDERS: ATTEND Family Medicine | DX: D50.9 Iron deficiency anemia, unspecified (principal); D51.3 Other dietary vitamin B12 deficiency anemia; E55.9 Vitamin D deficiency, unspecified ==

== ENCOUNTER → 2020-04-09 | Outpatient (CLI) | payer MEDICARE | LOC: NC 17:23 | PROVIDERS: ATTEND Family Medicine | DX: D50.9 Iron deficiency anemia, unspecified (principal) ==

== ENCOUNTER → 2020-04-19 | Outpatient (CLI) | payer MEDICARE | LOC: NC 18:20 | PROVIDERS: ATTEND Family Medicine | DX: R30.0 Dysuria (principal) ==